=== PATIENT | female | born 1930 | race Caucasian/White ===

== ENCOUNTER 2016-05-05 14:29 | Outpatient (RCR) | payer MEDICARE, OTHER ==
[~2016-05-05] VITALS: Ht 162.6 cm; Wt 74.8 kg
[~2016-05-05 14:29] MED LIST: AMOX500C PO; CALC1TAB29 PO; CERT400S SQ; CLON1TAB3 PO; FAMO20TA13 PO; FESO8TAB PO; FLC1T PO; FLUT16SP INH; GABA300C PO; GUAIFENESIN PO; HYDR-3702 PO; HYDR-4131 PO; HYDROXYSUT PO; LEVO25TA9 PO; LORA5TAB9 PO; METH2.5T PO; MULT1TAB PO; NAPR220C11 PO; OMEP20TA33 PO; SENN15TA6 PO; SPIR25TA PO; SULFASALAZINE PO; TIMO15DR11 OU; TOFA5TAB PO; VITAMIN D PO; ZOLE5INF IV
[2016-05-05 15:00] LABS: BASOPHILS % (AUTO) 1 % (0-2); EOSINOPHILS # (AUTO) 0.3 10^3uL; EOSINOPHILS % (AUTO) 5 % (0-4); LYMPHOCYTES # (AUTO) 1.8 X10^3; MEAN CORPUSCULAR HGB CONC 32.1 g/dL (31.0-37.0); MONOCYTES # (AUTO) 0.4 X10^3; MONOCYTES % (AUTO) 8 % (3-11); NEUTROPHILS # (AUTO) 2.9 X10^3; NEUTROPHILS % (AUTO) 53 % (51-67); PLATELET COUNT 273 10^3uL (150-450); WHITE BLOOD COUNT 5.46 10^3uL (4.0-11.0)
[2016-05-05] MEDS ORDERED: CERTOLIZUMAB PEGOL 400 MG SC SCH (15:00)
[2016-05-05 15:02] LABS: MEAN CORPUSCULAR HEMOGLOBIN 31.5 PG (26.0-34.0); MEAN CORPUSCULAR VOLUME 98 FL (80-100)
[2016-05-05 15:14] LABS: ALBUMIN 4.2 g/dL (3.4-5.0); ALKALINE PHOSPHATASE 61 U/L (38-126); ANION GAP 14.1 MEQ/L (3-15); BUN/CREATININE RATIO 22 (10-20); CALCULATED IONIZED CALCIUM 4.7 mg/dL (3.8-4.6); TOTAL PROTEIN 6.6 g/dL (6.4-8.5)
[2016-05-05 15:42] LABS: ERYTHROCYTE SEDIMENTATION RT* 5 mm/hr (0-23)
[2016-06-02] MEDS ORDERED: CERTOLIZUMAB PEGOL 400 MG SC SCH (16:00)
[2016-06-02 16:36] LABS: BASOPHILS % (AUTO) 1 % (0-2); EOSINOPHILS # (AUTO) 0.3 10^3uL; EOSINOPHILS % (AUTO) 7 % (0-4); LYMPHOCYTES # (AUTO) 1.6 X10^3; MEAN PLATELET VOLUME 9.3 FL (6.0-9.5); MONOCYTES # (AUTO) 0.4 X10^3; MONOCYTES % (AUTO) 8 % (3-11); NEUTROPHILS # (AUTO) 2.2 X10^3; NEUTROPHILS % (AUTO) 48 % (51-67); PLATELET COUNT 246 10^3uL (150-450); WHITE BLOOD COUNT 4.49 10^3uL (4.0-11.0)
[2016-06-02 16:37] LABS: MEAN CORPUSCULAR HEMOGLOBIN 31.9 PG (26.0-34.0); MEAN CORPUSCULAR HGB CONC 31.5 g/dL (31.0-37.0); MEAN CORPUSCULAR VOLUME 101 FL (80-100)
[2016-06-02 17:03] LABS: ALBUMIN 3.9 g/dL (3.4-5.0); ANION GAP 10.9 MEQ/L (3-15); CALCULATED IONIZED CALCIUM 4.8 mg/dL (3.8-4.6); TOTAL PROTEIN 6.6 g/dL (6.4-8.5)
[2016-06-02 17:15] LABS: ERYTHROCYTE SEDIMENTATION RT* 10 mm/hr (0-23)
[2016-07-02 15:50] LABS: BASOPHILS % (AUTO) 0 % (0-2); EOSINOPHILS # (AUTO) 0.3 10^3uL; EOSINOPHILS % (AUTO) 4 % (0-4); LYMPHOCYTES # (AUTO) 1.5 X10^3; MEAN CORPUSCULAR HGB CONC 33.2 g/dL (31.0-37.0); MEAN CORPUSCULAR VOLUME 97 FL (80-100); MEAN PLATELET VOLUME 9.9 FL (6.0-9.5); MONOCYTES # (AUTO) 0.4 X10^3; MONOCYTES % (AUTO) 6 % (3-11); NEUTROPHILS # (AUTO) 3.6 X10^3; NEUTROPHILS % (AUTO) 63 % (51-67); PLATELET COUNT 279 10^3uL (150-450); WHITE BLOOD COUNT 5.81 10^3uL (4.0-11.0)
[2016-07-02] MEDS ORDERED: CERTOLIZUMAB PEGOL 400 MG SC SCH (16:00)
[2016-07-02 16:06] LABS: ALBUMIN 4.3 g/dL (3.4-5.0); ANION GAP 11.2 MEQ/L (3-15); CALCULATED IONIZED CALCIUM 4.5 mg/dL (3.8-4.6); TOTAL PROTEIN 7.3 g/dL (6.4-8.5)
[2016-07-02 16:30] LABS: MEAN CORPUSCULAR HEMOGLOBIN 32.3 PG (26.0-34.0)
[2016-07-02 16:57] LABS: ERYTHROCYTE SEDIMENTATION RT* 6 mm/hr (0-23)
[2016-07-30] MEDS ORDERED: CERTOLIZUMAB PEGOL 400 MG SC SCH (15:00)
[2016-08-30 13:28] VITALS: BP 120/51
[2016-08-30] MEDS ORDERED: CERTOLIZUMAB PEGOL 400 MG SC SCH (13:30)
[2016-08-30 13:42] LABS: BASOPHILS % (AUTO) 1 % (0-2); EOSINOPHILS # (AUTO) 0.3 10^3uL; EOSINOPHILS % (AUTO) 5 % (0-4); LYMPHOCYTES # (AUTO) 1.9 X10^3; MEAN CORPUSCULAR HGB CONC 32.2 g/dL (31.0-37.0); MEAN PLATELET VOLUME 9.6 FL (6.0-9.5); MONOCYTES # (AUTO) 0.2 X10^3; MONOCYTES % (AUTO) 5 % (3-11); NEUTROPHILS # (AUTO) 2.4 X10^3; NEUTROPHILS % (AUTO) 49 % (51-67); PLATELET COUNT 273 10^3uL (150-450); WHITE BLOOD COUNT 4.82 10^3uL (4.0-11.0)
[2016-08-30 13:43] LABS: MEAN CORPUSCULAR HEMOGLOBIN 31.4 PG (26.0-34.0); MEAN CORPUSCULAR VOLUME 98 FL (80-100)
[2016-08-30 14:02] LABS: ALBUMIN 3.6 g/dL (3.4-5.0); ALKALINE PHOSPHATASE 51 U/L (38-126); ANION GAP 12.1 MEQ/L (3-15); BUN/CREATININE RATIO 26 (10-20); CALCULATED IONIZED CALCIUM 4.6 mg/dL (3.8-4.6); TOTAL PROTEIN 6.3 g/dL (6.4-8.5)
[2016-08-30 14:15] LABS: ERYTHROCYTE SEDIMENTATION RT* 6 mm/hr (0-23)
== END 2016-08-30 | disposition home or self-care (01) ==
LOC: EUOP 06-02 15:24
PROVIDERS: ATTEND Family Medicine
DX: M05.79 Rheumatoid arthritis with rheumatoid factor of multiple sites without organ or systems involvement (principal); Z79.899 Other long term (current) drug therapy
CPT/HCPCS: 36415; 80053; 85025; 85652; 86140; 96372; J0717

== ENCOUNTER 2016-10-05 16:00 | Outpatient (RCR) | payer MEDICARE, OTHER ==
[~2016-10-05] VITALS: Ht 162.6 cm; Wt 74.8 kg
[~2016-10-05 16:00] MED LIST changes: +CERTOLIZUMAB PEGOL 400 MG SC SCH
[2016-10-05 16:34] LABS: BASOPHILS % (AUTO) 1 % (0-2); EOSINOPHILS # (AUTO) 0.4 10^3uL; EOSINOPHILS % (AUTO) 7 % (0-4); LYMPHOCYTES # (AUTO) 1.6 X10^3; MEAN CORPUSCULAR HGB CONC 32.3 g/dL (31.0-37.0); MONOCYTES # (AUTO) 0.4 X10^3; MONOCYTES % (AUTO) 6 % (3-11); NEUTROPHILS # (AUTO) 3.7 X10^3; NEUTROPHILS % (AUTO) 60 % (51-67); PLATELET COUNT 235 10^3uL (150-450); WHITE BLOOD COUNT 6.18 10^3uL (4.0-11.0)
[2016-10-05 16:36] LABS: MEAN CORPUSCULAR HEMOGLOBIN 32.1 PG (26.0-34.0); MEAN CORPUSCULAR VOLUME 99 FL (80-100)
[2016-10-05 16:47] LABS: ALKALINE PHOSPHATASE 56 U/L (38-126); ANION GAP 11.5 MEQ/L (3-15); BUN/CREATININE RATIO 27 (10-20); CALCULATED IONIZED CALCIUM 4.5 mg/dL (3.8-4.6); TOTAL PROTEIN 6.7 g/dL (6.4-8.5)
[2016-10-05 17:01] VITALS: BP 157/48
--- NOTE | 2016-10-05 17:03 | NUR ---
Patient's injections were given in the abdomen bilaterally instead of the bilateral arms.
[2016-10-05 17:43] LABS: ERYTHROCYTE SEDIMENTATION RT* 4 mm/hr (0-23)
== END 2016-10-13 18:20 | disposition home or self-care (01) ==
LOC: EUOP 10-13 18:20
PROVIDERS: ATTEND Family Medicine
DX: M05.79 Rheumatoid arthritis with rheumatoid factor of multiple sites without organ or systems involvement (principal); Z79.899 Other long term (current) drug therapy
CPT/HCPCS: 36415; 80053; 85025; 85652; 86140; 96372; J0717